=== PATIENT | male | born 1940 | race Caucasian/White ===

== ENCOUNTER 2017-10-16 19:23 | Emergency (ER) | payer MEDICARE, OTHER ==
[~2017-10-16] VITALS: Ht 185.4 cm; Wt 97.6 kg
[~2017-10-16 19:23] MED LIST: ATEN1TAB55 PO; EYE GTTS; GLIP5TAB15 PO; IOHEXOL 350 MG/ML 10 ML VIAL (for RAD DIAG) IVCONTRAST ONE; MEDR4PAK3 PO; METF-324 PO; PRIN5TAB PO; SIMV5TAB3 PO
[2017-10-16 20:25] VITALS: BP 175/84; PULSE 58; RESP 18; TEMP 98.3; O2SAT 98
[2017-10-17] MEDS ORDERED: SODIUM CHLORIDE 0.9% FLUSH 10 ML FLUSH IV FLUSH PRN (00:15)
[2017-10-17] MEDS ORDERED: SIMV5TAB3 PO (00:29)
[2017-10-17] MEDS ORDERED: OMEP40CA2 (00:29)
[2017-10-17] MEDS ORDERED: METF1000 PO (00:29)
[2017-10-17] MEDS ORDERED: ASPI81CH6 CHEW (00:29)
[2017-10-17] MEDS ORDERED: ATEN100T PO (00:29)
[2017-10-17 00:30] VITALS: BP 179/84; PULSE 64; RESP 20; O2SAT 98
[2017-10-17 00:51] LABS: AUTOMATED NEUTROPHIL # 3.8 TH/MM3 (1.8-7.7); BASOPHIL # 0.3 TH/MM3 (0-0.2); BASOPHIL % 3.9 % (0.0-2.0); EOSINOPHIL # 0.1 TH/MM3 (0-0.4); EOSINOPHIL % 1.1 % (0.0-4.0); HEMATOCRIT 40.1 % (39.0-51.0); HEMOGLOBIN 13.3 GM/DL (13.0-17.0); LYMPH % 29.5 % (9.0-44.0); MEAN CELL VOLUME 85.1 FL (80.0-100.0); MEAN CORPUSCULAR HEMOGLOBIN 28.2 PG (27.0-34.0); MEAN CORPUSCULAR HGB CONC 33.1 % (32.0-36.0); MEAN PLATELET VOLUME 9.1 FL (7.0-11.0); MONOCYTE # 0.5 TH/MM3 (0-0.9); NEUT % 58.5 % (16.0-70.0); PLATELET COUNT 183 TH/MM3 (150-450); RED BLOOD COUNT 4.71 MIL/MM3 (4.50-5.90); RED CELL DISTRIBUTION WIDTH 13.2 % (11.6-17.2); WHITE BLOOD COUNT 6.7 TH/MM3 (4.0-11.0)
[2017-10-17 00:58] LABS: CHLORIDE 106 MEQ/L (98-107); SODIUM (NA) 139 MEQ/L (136-145)
[2017-10-17 01:02] LABS: ALBUMIN 3.6 GM/DL (3.4-5.0); BICARBONATE 25.6 MEQ/L (21.0-32.0); BLOOD UREA NITROGEN 15 MG/DL (7-18); CALCIUM 8.3 MG/DL (8.5-10.1); GLUCOSE,RANDOM 169 MG/DL (74-106)
[2017-10-17 01:05] LABS: ALT (GPT) 14 U/L (12-78); AST (GOT) 10 U/L (15-37); BILIRUBIN, URINE NEG (NEG); BLOOD, URINE SMALL (NEG); GLOMERULAR FILTRATION RATE 65 ML/MIN (>89); GLUCOSE,URINE 100 mg/dL (NEG); KETONE, URINE TRACE mg/dL (NEG); NITRITE,URINE NEG (NEG); URINE COLOR YELLOW (YELLW/STRAW); URINE LEUKOCYTE ESTERASE NEG (NEG)
[2017-10-17 01:07] LABS: TOTAL BILIRUBIN ADULT 0.2 MG/DL (0.2-1.0); TOTAL PROTEIN 7.2 GM/DL (6.4-8.2)
[2017-10-17 01:08] LABS: ALKALINE PHOSPHATASE 75 U/L (45-117)
[2017-10-17 01:09] LABS: SQUAMOUS EPITHELIAL CELL URINE 0-5 /hpf (0-5); WBC, URINE 0-2 /hpf (0-5)
[2017-10-17] MEDS ORDERED: IOHEXOL 350 MG/ML 10 ML VIAL (for RAD DIAG) IVCONTRAST ONE (01:28)
--- NOTE | 2017-10-17 02:00 | RADRPT ---
EXAM DATE/TIME: 10/17/2017 01:22 [place] COMPARISON: No previous studies available for comparison. INDICATIONS : Right side abdomen pain and swelling. IV CONTRAST: 100 cc Omnipaque 350 (iohexol) IV ORAL CONTRAST: No oral contrast ingested. RADIATION DOSE: 18.82 CTDIvol (mGy) MEDICAL HISTORY : Hypertension. SURGICAL HISTORY : None. ENCOUNTER: Initial ACUITY: 2 months PAIN SCALE: 4/10 LOCATION: Right abdomen TECHNIQUE: Volumetric scanning of the abdomen and pelvis was performed. Using automated exposure control and ad justment of the mA and/or kV according to patient size, radiation dose was kept as low as reasonably achievable to obtain optimal diagnostic quality images. DICOM format image data is available electro nically for review and comparison. FINDINGS: LOWER LUNGS: The visualized lower lungs are clear. LIVER: Homogeneous density without lesion. There is no dilation of the biliary tree. No calcified gallston es. SPLEEN: Normal size without lesion. Scattered granulomatous calcifications. PANCREAS: Within normal limits. KIDNEYS: Symmetric mild renal cortical atrophy. Several bilateral cortical cysts measuring up to 2.9 cm. No evidence of hydronephrosis. No calcified renal stones. ADRENAL GLANDS: Within normal limits. VASCULAR: There is no aortic aneurysm. Incidental note of retroaortic left renal vein. BOWEL/MESENTERY: No dilated loops of small large bowel. Mild amount of stool throughout the colon. Incidental note of colonic interposition of the colon anterior to the liver. ABDOMINAL WALL: Within normal limits. RETROPERITONEUM: There is no lymphadenopathy. BLADDER: No wall thickening or mass. REPRODUCTIVE: Within normal limits. INGUINAL: Bilateral moderate size fat-containing inguinal hernias. MUSCULOSKELETAL: Hemangioma of the right L5 vertebral body. CONCLUSION: 1. Bilateral fat containing inguinal hernias. 2. No acute findings in the abdomen or pelvis. Rajinder Martin MD on October 17, 2017 at 1:47 Board Certified Radiologist. This report was verified electronically.
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
[2017-10-17 02:43] VITALS: BP 189/86
== END 2017-10-17 02:51 | disposition home or self-care (01) ==
LOC: PHED 19:23
DX: R10.9 Unspecified abdominal pain (principal); D18.09 Hemangioma of other sites; N28.1 Cyst of kidney, acquired; K40.20 Bilateral inguinal hernia, without obstruction or gangrene, not specified as recurrent; I10 Essential (primary) hypertension; E11.9 Type 2 diabetes mellitus without complications; E78.00 Pure hypercholesterolemia, unspecified; Z79.84 Long term (current) use of oral hypoglycemic drugs; Z79.899 Other long term (current) drug therapy
CPT/HCPCS: 74177; 80053; 81001; 83690; 85025; 99284; Q9967